=== PATIENT | male | born 1950 | race African-American/Black ===

== ENCOUNTER 2017-01-30 16:24 | Emergency (ER) | payer OTHER ==
[2017-01-30 16:39] VITALS: BP 174/89
[2017-01-30] MEDS ORDERED: ASPIRIN 325 MG TABLET PO ONE (17:11)
--- NOTE | 2017-01-30 17:13 | ER Document Report ---
ED Medical Screen (RME) - General Chief Complaint: Chest Pain > 30 Stated Complaint: BACK PAIN, COUGH Time Seen by Provider: 01/30/17 17:11 Mode of Arrival: Ambulatory Information source: Patient TRAVEL OUTSIDE OF THE [place] IN LAST 30 DAYS: No - HPI Patient complains to provider of: CP; back pain Onset: Yesterday - pt started with R sided LBP yesterday which radiated to R side of chest today. Did not take ASA today - Related Data Allergies/Adverse Reactions: No Known Allergies Allergy (Unverified 01/30/17 16:27) Home Medications: Current Home Medications Unobtainable [Unobtainable] 01/30/17 [History] Past Medical History - Social History Frequency of alcohol use: None Drug Abuse: None Renal/ Medical History: Denies: Hx Peritoneal Dialysis Physical Exam - Vital signs Vitals: Temp Pulse Resp BP Pulse Ox 98.7 F 69 18 174/89 H 97 01/30/17 16:39 01/30/17 16:39 01/30/17 16:39 01/30/17 16:39 01/30/17 16:39 Course - Vital Signs Vital signs: Temp Pulse Resp BP Pulse Ox 98.7 F 69 18 174/89 H 97 01/30/17 16:39 01/30/17 16:39 01/30/17 16:39 01/30/17 16:39 01/30/17 16:39
--- NOTE | 2017-01-30 17:47 | RADIOLOGY REPORT (SQ) ---
EXAM DESCRIPTION: CHEST PA/LAT COMPLETED DATE/TIME: 01/30/2017 5:39 pm REASON FOR STUDY: cp COMPARISON: None. EXAM PARAMETERS: NUMBER OF VIEWS: two views TECHNIQUE: Digital Frontal and Lateral radiographic views of the chest acquired. RADIATION DOSE: NA LIMITATIONS: none FINDINGS: LUNGS AND PLEURA: No opacities, masses or pneumothorax. No pleural effusion. MEDIASTINUM AND HILAR STRUCTURES: No masses or contour abnormalities. HEART AND VASCULAR STRUCTURES: Heart normal size. No evidence for failure. BONES: No acute findings. HARDWARE: None in the chest. OTHER: No other significant finding. IMPRESSION: NO SIGNIFICANT RADIOGRAPHIC FINDING IN THE CHEST. TECHNICAL DOCUMENTATION: JOB ID: [id number] [employer]- All Rights Reserved
[2017-01-30 17:48] LABS: ABSOLUTE BASOPHILS # (AUTO) 0.1 10^3/uL (0.0-0.2); ABSOLUTE EOSINOPHILS # (AUTO) 0.2 10^3/uL (0.0-0.6); ABSOLUTE LYMPHOCYTES (AUTO) 2.2 10^3/uL (0.5-4.7); ABSOLUTE MONOCYTES (AUTO) 0.8 10^3/uL (0.1-1.4); ABSOLUTE NEUT (AUTO) 5.4 10^3/uL (1.7-8.2); BASOPHILS % (AUTO) 0.8 % (0-2); HEMATOCRIT 42.9 % (37.9-51.0); HEMOGLOBIN 14.4 g/dL (13.5-17.0); HGB HCT DIFFERENCE 0.3; LYMPHOCYTES % (AUTO) 25.8 % (13-45); MEAN CORPUSCULAR HEMOGLOBIN 27.1 pg (27.0-33.4); MEAN CORPUSCULAR HGB CONC 33.6 g/dL (32.0-36.0); MEAN CORPUSCULAR VOLUME 81 fl (80-97); RED BLOOD COUNT 5.32 10^6/uL (4.35-5.55); RED CELL DISTRIBUTION WIDTH 14.9 % (11.5-14.0); SEGMENTED NEUTROPHILS % (AUTO) 62.4 % (42-78); WHITE BLOOD COUNT 8.7 10^3/uL (4.0-10.5)
[2017-01-30 18:09] LABS: ALANINE AMINOTRANSFERASE 45 U/L (21-72); ALBUMIN 4.5 g/dL (3.5-5.0); ALKALINE PHOSPHATASE 50 U/L (38-126); ANION GAP 14 (5-19); ASPARTATE AMINO TRANSFERASE 30 U/L (17-59); BILIRUBIN,DIRECT 0.3 mg/dL (0.0-0.4); BILIRUBIN,TOTAL 1.1 mg/dL (0.2-1.3); BLOOD UREA NITROGEN 20 mg/dL (7-20); CALCIUM 9.4 mg/dL (8.4-10.2); CARBON DIOXIDE 25 mmol/L (22-30); CHLORIDE 106 mmol/L (98-107); CREATINE KINASE 468 U/L (55-170); CREATININE RESULT 1.21 mg/dL (0.52-1.25); GLUCOSE 89 mg/dL (75-110); POTASSIUM 4.6 mmol/L (3.6-5.0); SODIUM 144.5 mmol/L (137-145); TOTAL PROTEIN 8.1 g/dL (6.3-8.2)
[2017-01-30 18:20] LABS: CREATINE KINASE MB 1.94 ng/mL (<4.55); TROPONIN I 0.014 ng/mL
--- NOTE | 2017-01-30 20:34 | ER Document Report ---
ED General - General Chief Complaint: Chest Pain > 30 Stated Complaint: BACK PAIN, COUGH Time Seen by Provider: 01/30/17 17:11 Mode of Arrival: Ambulatory Notes: Patient is a 66-year-old male comes emergency department for chief complaint of pain along his mid back with movement, he states that symptoms started yesterday , he states that he still has an occasional cough and now he is feeling pain radiating around the right side of his chest. He states that at rest at this time he has no complaints unless he coughs. He denies trauma, fever, shortness of breath. He denies smoking, COPD/asthma, [place], states he had a negative stress test in the past. Past medical history of hypertension and hyperlipidemia. TRAVEL OUTSIDE OF THE [place] IN LAST 30 DAYS: No - Related Data Allergies/Adverse Reactions: No Known Allergies Allergy (Unverified 01/30/17 16:27) Past Medical History - General Information source: Patient - Social History Smoking Status: Never Smoker Frequency of alcohol use: None Drug Abuse: None Lives with: Family Family History: Reviewed & Not Pertinent Patient has suicidal ideation: No Patient has homicidal ideation: No - Past Medical History Cardiac Medical History: Reports: Hx Hypercholesterolemia, Hx Hypertension Renal/ Medical History: Denies: Hx Peritoneal Dialysis Surgical Hx: Negative - Immunizations Immunizations up to date: Yes Hx Diphtheria, Pertussis, Tetanus Vaccination: Yes Review of Systems - Review of Systems Constitutional: No symptoms reported EENT: No symptoms reported Cardiovascular: See HPI Respiratory: See HPI Gastrointestinal: No symptoms reported Genitourinary: No symptoms reported Male Genitourinary: No symptoms reported Musculoskeletal: See HPI Skin: No symptoms reported Hematologic/Lymphatic: No symptoms reported Neurological/Psychological: No symptoms reported Physical Exam - Vital signs Vitals: Temp Pulse Resp BP Pulse Ox 98.7 F 69 18 174/89 H 97 01/30/17 16:39 01/30/17 16:39 01/30/17 16:39 01/30/17 16:39 01/30/17 16:39 Interpretation: Normal - General General appearance: Appears well, Alert In distress: None - HEENT Head: Normocephalic, Atraumatic Eyes: Normal Conjunctiva: Normal Extraocular movements intact: Yes Eyelashes: Normal Pupils: PERRL Mouth/Lips: Normal Mucous membranes: Normal Pharynx: Normal Neck: Normal - Respiratory Respiratory status: No respiratory distress Chest status: Tender - tender in the right chest and side at the lower ribs extending around laterally (very mild); no erythema, crepitus, swelling Breath sounds: Normal Chest palpation: Normal - Cardiovascular Rhythm: Regular. No: Tachycardia Heart sounds: Normal auscultation, S1 appreciated, S2 appreciated Murmur: No - Abdominal Inspection: Normal Distension: No distension Bowel sounds: Normal Tenderness: Nontender. No: Tender, Guarding Organomegaly: No organomegaly - Back Back: Normal, Nontender. No: Tender - Extremities General upper extremity: Normal inspection, Nontender, Normal strength, Normal temperature General lower extremity: Normal inspection, Nontender, Normal strength, Normal temperature - Neurological Neuro grossly intact: Yes Cognition: Normal Orientation: AAOx4 Myra Coma Scale Eye Opening: Spontaneous Myra Coma Scale Verbal: Oriented Myra Coma Scale Motor: Obeys Commands Myra Coma Scale Total: 15 Speech: Normal Motor strength normal: LUE, RUE, LLE, RLE Sensory: Normal - Psychological Associated symptoms: Normal affect, Normal mood - Skin Skin Temperature: Warm Skin Moisture: Dry Skin Color: Normal Course - Re-evaluation Re-evalutation: Patient is well-appearing, complains of mild pain when he performs movement, especially twisting movement, however he does not have any other complaints. Clear lungs, no tachypnea, hypoxia, or fever. No tachycardia. Chest x-ray is unremarkable. EKG showing left bundle branch block, I do not have a comparison EKG. Initial troponin is 0.014. Ck is 448. Second troponin is negative. CBC, chemistry unremarkable. On reexamination patient is unchanged, he has no symptoms unless he moves and then he has pain with movement along his right side into his right lower chest. Very atypical symptoms. Heart score of 3. Patient already stating that after the second troponin he is planning on leaving. I did discuss admission with him briefly but he declined. 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 As result patient was discharged home, he declines any symptomatic treatment, he states that he will return if he worsens in any way, also at bedside and states satisfaction with this plan. Patient discharged with return precautions. - Vital Signs Vital signs: Temp Pulse Resp BP Pulse Ox 98.7 F 69 18 174/89 H 97 01/30/17 16:39 01/30/17 16:39 01/30/17 16:39 01/30/17 16:39 01/30/17 16:39 - Laboratory Result Diagrams: 01/30/17 17:30 01/30/17 17:30 Laboratory results interpreted by me: 01/30/17 01/30/17 17:30 17:30 RDW 14.9 H Creatine Kinase 468 H Discharge - Discharge Clinical Impression: Right-sided chest pain Back pain Qualifiers: Back pain location: back pain in unspecified location Chronicity: acute Back pain laterality: right Qualified Code(s): M54.9 - Dorsalgia, unspecified Disposition: HOME, SELF-CARE Additional Instructions: Your EKG shows a left bundle branch block. Your remaining workup including laboratory values, cardiac enzymes, and chest x- ray did not show any abnormalities. Your evaluation and symptoms are most suggestive of a musculoskeletal source of your symptoms. Recommend taking the anti-inflammatory and muscle relaxant as prescribed, apply heat to the area, and rest. Follow closely with your primary care provider for additional evaluation and management including cardiology referral, see referral listed. Return the emergency department immediately if you worsen in anyway including difficulty breathing, worsening pain, fever, vomiting, or any other concerning symptoms. Prescriptions: Metaxalone [Skelaxin 800 mg Tablet] 800 mg PO ASDIR PRN #20 tablet PRN Reason: Naproxen [Naprosyn 250 mg Tablet] 250 mg PO DAILY PRN #10 tablet PRN Reason: Referrals: JOSE CLAIRE MD [Primary Care Provider] - Follow up as needed
[2017-01-30] MEDS ORDERED: BENZONATATE 100 MG CAPSULE PO ONE (22:00)
--- NOTE | 2017-01-31 09:41 | EKG REPORT ---
SEVERITY:- ABNORMAL ECG - SINUS RHYTHM LEFT BUNDLE BRANCH BLOCK : Confirmed by: Aguila Anaya MD 31-Jan-2017 09:40:49
== END 2017-01-30 23:19 | disposition home or self-care (01) ==
LOC: ER 16:24
DX: R07.9 Chest pain, unspecified (principal); R05 Cough; M54.9 Dorsalgia, unspecified; I10 Essential (primary) hypertension; I44.7 Left bundle-branch block, unspecified
CPT/HCPCS: 36415; 71020; 80053; 82550; 82553; 84484; 85025; 93005; 93010; 99285